=== PATIENT | male | born 1955 | race Caucasian/White ===

== ENCOUNTER 2020-02-25 11:42 | Inpatient (IN) | payer BC ==
[~2020-02-25] VITALS: Ht 177.8 cm; Wt 102.1 kg
[2020-02-25] VITALS (8 sets, daily range): BP systolic 117–163; BP diastolic 69–96
[2020-02-25 12:56] LABS: ABSOLUTE NEUTROPHILS 7.1 thou/uL (1.4-8.2); BASOPHILS 0.6 % (0.0-2.0); HEMATOCRIT 45.3 % (42.0-52.0); HEMOGLOBIN 14.8 gm/dL (14.0-18.0); LYMPHOCYTES 12.8 % (24.0-44.0); MCH 26.4 pg (26.0-34.0); MCHC 32.7 g/dL (28.0-37.0); MCV 80.6 fL (80.0-100.0); MONOCYTES 5.2 % (1.0-8.0); PLATELET COUNT 233 thou/uL (150-400); POLYS 80.4 % (36.0-66.0); RBC 5.62 mil/uL (4.50-6.00); WBC 8.8 thou/uL (4.0-11.0)
[2020-02-25 13:05] LABS: CALCIUM 10.1 mg/dL (8.5-10.1); CREATININE 1.2 mg/dL (0.7-1.3); POTASSIUM 3.9 mmol/L (3.5-5.1)
[2020-02-25 13:08] LABS: APTT 27.4 Seconds (24.5-32.8); PROTIME 10.5 Seconds (9.3-11.4)
[2020-02-25 13:14] LABS: TROPONIN-I 0.25 ng/mL (<0.06)
--- NOTE | 2020-02-25 14:56 | HC ---
[facility] [place] [address] CONSULTATION Name: EREN BLACKMAN Room #: 170-3 ADM IN M.R.#: [id number] Admission: 02/25/20 Attend Phys: Fabio Kim MD Discharge: Date of : 59 Report #: [id number] THIS REPORT FOR: cc: FAM - No family physician/PCP FAM - No family physician/PCP Janes Mcfarlane MD [facility] ~ DATE OF SERVICE: 02/25/2020 REASON FOR CONSULTATION: Chest pain. HISTORY OF PRESENT ILLNESS: The patient is a 64-year-old gentleman with a fairly limited past medical history. Today around 10:00 a.m., he developed bilateral armpit pain with shortness of breath and diaphoresis. He presented to the Emergency Department where an EKG at 12:25 p.m. on 02/25/[address] segment elevation. He has been treated with aspirin and heparin and has had improvement, although not resolution in his discomfort. No prior cardiac history. He denies orthopnea, paroxysmal nocturnal dyspnea, or lower extremity edema. No history of palpitations, near syncope, or syncope. ALLERGIES: HE IS ALLERGIC TO TETANUS AND BEE STINGS. MEDICATIONS: Include timolol eyedrops. PAST MEDICAL HISTORY: Medical records include tonsillectomy, no significant hospitalizations, illnesses, or surgeries. SOCIAL HISTORY: He is a ios software engineer. . Nonsmoker. FAMILY HISTORY: Notable for a brother with premature coronary artery disease and diabetes. REVIEW OF SYSTEMS: All systems negative except as that noted above. PHYSICAL EXAMINATION: GENERAL: He is a pleasant gentleman, in moderate distress. VITAL SIGNS: Blood pressure is 160/90, heart rate of 54 and regular. He is afebrile, 5 feet 10 inches tall, 225 pounds. HEENT: There is neither xanthelasma, subcutaneous xanthomata, oral mucosal or digital cyanosis or kyphoscoliosis present. CHEST: Clear to auscultation and percussion. CARDIAC: Reveals a regular rate and rhythm with distant heart tones. ABDOMEN: Soft and nontender. EXTREMITIES: Without cyanosis, clubbing, or edema. Radial pulses are 2+. NEUROLOGIC: He is alert with a nonfocal exam. [facility] [address] [place] [address] CONSULTATION Name: EREN BLACKMAN Room #: 170-3 ADM IN [facility].#: [id number] Admission: 02/25/20 Attend Phys: Fabio Kim MD Discharge: Date of : 59 Report #: [id number] LABORATORY DATA: Sodium 139, potassium 3.9, creatinine 1.2, and glucose 113. Coagulation parameters normal. White count 8.8, hemoglobin 14, hematocrit 45, and platelet count 233. Chest x-ray is negative. IMPRESSION: 1. Acute anterior myocardial infarction. 2. Acute systolic heart failure 3. Hypertension. 4. Unknown lipid status. RECOMMENDATIONS: 1. Urgent coronary angiography. 2. Antiplatelet and anticoagulant therapy. 3. The angiographic procedure was discussed in detail including its associated risks. After a thorough discussion of the procedure, its risks and alternatives, and after answering his questions, he is agreeable to proceeding. 65min cc time 1pm-2:56pm coordinating care, discussions with family <ELECTRONICALLY SIGNED> By: Janes Mcfarlane MD, [facility] 02/25/20 1456 1312 1424 Janes Mcfarlane MD, FACC /nt
--- NOTE | 2020-02-25 15:06 | CATHLAB ---
[facility] [place] [address] INVASIVE PROCEDURE REPORT Name: EREN BLACKMAN Room #: 170-3 ADM IN M.R.#: [id number] Admission: 02/25/20 Attend Phys: Fabio Kim MD Discharge: Date of : 59 Report #: [id number] THIS REPORT FOR: cc: FAM - No family physician/PCP FAM - No family physician/PCP Janes Mcfarlane MD [facility] ~ APPROVED REPORT Study performed: 02/25/2020 13:15:44 Patient Details Patient Status: In-Patient Room #: The patient is a 64 year-old male Event Personnel Janes Mcfarlane Retort Unloader, Cora Munguia RN RN, Francia Ellis Monitor, Yuki Bates RTR, UPHOLSTERY MECHANIC Scrub Procedures Performed Art Access - R femoral artery* Left Heart Cath w/or w/o Coronaries [id number] [facility] [address] Initial Mod Sed Same Phys/QHP Gr5y 633062 75312 Mod Sed Same Phys/QHP Ea 940428 WALDO Revasc AMI Total/Sub Single LAD C9606 AMIREVSING Hemostasis w/ Mynx Indication STEMI (>0 to less than or equal to 6 hours) Risk Factors Arterial HypertensionDysplipidemia Procedure Narrative The patient was brought emergently to the Cardiac Catheterization Laboratory and was prepped and draped in a sterile manner. The Right Groin^ was infiltrated with 1% Lidocaine subcutaneous anesthesia. A PINNACLE 6FR Sheath #[id number] sheath was inserted into the RFA^. Coronary angiography was performed using coronary diagnostic catheters. The right coronary system was accessed and visualized with a JR 4 catheter. The left coronary system was accessed and visualized with a JL 4 catheter. The left ventricle was accessed and visualized with a Pigtail catheter. Left ventricular/Aortic Valve gradient assessed via catheter pullback. Left ventriculogram was performed in HEDRICK projection. Closure device was deployed with a 6 Fr Mynx. The patient tolerated the procedure well and there were no complications associated with the procedure. [facility] [address] [place] [address] INVASIVE PROCEDURE REPORT Name: HIRALEREN Elissa Room #: 170-3 [facility] IN [facility].#: [id number] Admission: 02/25/20 Attend Phys: Fabio Kim MD Discharge: Date of : 59 Report #: [id number] Intraoperative Conscious Sedation Sedation start time: 13:25 Case end Time: 14:30 Fentanyl 100 mcg Versed 1 mg Fluoro Time: 7.54 minutes Dose: DAP 9105.00 cGycm2 1196 mGy Contrast Type and Amount: Visipaque 225 ml Coronary Angiography The patient's coronary anatomy is co- dominant. Diagnostic Cath Left Main Normal left main LAD Occluded proximal LAD just after a large first diagonal branch Diagonal 1 Moderate 30-40% proximal diagonal branch plaquing Circumflex Large codominant circumflex. Distal 20-30% circumflex plaquing before the posterior descending OM1 Mild plaquing in a small first marginal branch L PDA Normal posterior descending branch Right Coronary Codominant right coronary with minimal mid vessel plaquing R PDA Mild 20-30% proximal PDA plaquing RPLV Mild plaquing at the origin of the posterior lateral branch Left Ventriculography The left ventricle is normal in size with abnormal contractility. The left ventricular ejection fraction is estimated to be 40%. Left ventricular wall motion abnormalities are present. There is no mitral insufficiency. Anteroapical hypokinesis Hemodynamics The aortic pressure is 167/94 mmHg with a mean of 130 mmHg. The left ventricular pressure is 149/28 mmHg with a mean of mmHg. The left ventricular end diastolic pressure is 30 mmHg. PCI Technique Lesion Anticoagulation was achieved with Heparin,, Integrilin. Patient was preloaded with Effient. Percutaneous coronary intervention was performed on the proximal left anterior descending artery segment. The lesion stenosis prior to intervention was 100% with FLORA 0 flow. A LAUNCHER 6FR EBU 3.5 #[id number] Guide Catheter was used to engage the [facility] [address] [place] [address] INVASIVE PROCEDURE REPORT Name: EREN BLACKMAN Room #: 170-3 [facility] IN M.R.#: [id number] Admission: 02/25/20 Attend Phys: Fabio Kim MD Discharge: Date of : 59 Report #: [id number] ostium. A Luge Wire .014 x 182CM #[id number] Interventional Guidewire was used to cross the lesion. BALLOON DILATION A Balloon catheter Euphora RX 2.5 x 15 #[id number] was inserted and inflated up to 8.00atm for 28seconds. Repeat angiography revealed the following post-dilatation results: Moderate residual stenosis, FLORA-3 flow restored. STENT DEPLOYMENT A drug-eluting stent RESOLUTE BERNARDA RX 3.0 X 18 #[id number] was inserted and inflated up to 14.00atm for 32seconds. POST STENT DEPLOYMENT BALLOON DILATION A Balloon catheter TREK NC RX 3.0 X 15 #[id number] was inserted and inflated up to 18.00atm for 33seconds. Final angiography reveals 0 % stenosis with FLORA 3 flow. Conclusion 1. Moderate left ventricular dysfunction with anteroapical hypokinesis. EF 40% 2. Normal left main 3. Proximal LAD occlusion successfully opened with a 3.0 x 18 mm Resolute medicated stent. FLORA III flow restored 4. Codominant circumflex with mild plaquing 5. Right coronary with mild mid vessel plaquing Medications Administered DIANA Inhibitor (any) Aspirin (any) Beta Saundra (any) Statin (any) Prasugrel <ELECTRONICALLY SIGNED> By: Janes Mcfarlane MD, [facility] 02/25/20 1505 1505 1505 Janes Mcfarlane MD, FAC /INF
--- NOTE | 2020-02-25 15:22 | EKG ---
[place] [address] [facility] [place] [address] ELECTROCARDIOGRAM REPORT Name: EREN BLACKMAN Room #: 200-I ADM IN .R.#: [id number] Admission: 02/25/20 Attend Phys: Fabio Kim MD Discharge: Date of : 59 Report #: [id number] [facility] ED Test Date: 2020-02-25 Test Time: 12:25:04 Pat Name: EREN BLACKMAN Department: Room: 200 Gender: M Sales Utility Representative: shawn : 1955 Requested By: Juan F Armenta Order Number: [id number] MD: Janes Mcfarlane Measurements Intervals [place] Rate: 51 P: 45 NE: 145 QRS: -22 QRSD: 96 T: -12 QT: 436 QTc: 402 Interpretive Statements Sinus rhythm Borderline left axis deviation Anterolateral infarct, acute (LAD) No previous ECG available for comparison Electronically Signed On 02-25-2020 15:22:02 AEROSPACE ASSEMBLER by Janes Mcfarlane [email or web address] <ELECTRONICALLY SIGNED> By: Janes Mcfarlane MD, [facility] 02/25/20 1522 1225 1225 Janes Mcfarlane MD, FACC /EPI
--- NOTE | 2020-02-25 18:22 | NUR ---
TO UNIT FROM [facility] HELPER AT 1600. VSS. NO C/O. DENIES CP, SOA. AT BEDSIDE. BEDREST UNTIL 1800. GROIN SITE NONTENDER, CDI. SR WITH BBB PER TELE. ORIENTED TO UNIT, FALL PRECAUTIONS.
[2020-02-26] VITALS: BP 120/60
[2020-02-26 04:16] LABS: HEMATOCRIT 41.1 % (42.0-52.0); HEMOGLOBIN 13.2 gm/dL (14.0-18.0); MCH 26.1 pg (26.0-34.0); MCHC 32.2 g/dL (28.0-37.0); MCV 80.9 fL (80.0-100.0); RBC 5.08 mil/uL (4.50-6.00); RDW 14.8 % (10.5-14.5)
[2020-02-26 04:54] VITALS: BP 105/62
[2020-02-26 04:59] LABS: ALBUMIN 3.2 g/dL (3.4-5.0); ANION GAP 12 mmol/L (7-16); BUN 12 mg/dL (7-18); CALCIUM 9.1 mg/dL (8.5-10.1); CHLORIDE 103 mmol/L (98-107); CHOLESTEROL 227 mg/dL (<200); CO2 24 mmol/L (21-32); CREATININE 1.2 mg/dL (0.7-1.3); GLUCOSE 137 mg/dL (74-106); HDL CHOLESTEROL 36 mg/dL (>40); LDL CHOLESTEROL 174 mg/dL (<100); POTASSIUM 3.6 mmol/L (3.5-5.1); SGOT 383 U/L (15-37); SGPT 67 U/L (30-65); SODIUM 139 mmol/L (136-145); TC:HDL 6.3 Ratio (Not establshd); TOTAL BILIRUBIN 0.7 mg/dL (0.2-1.0); TOTAL PROTEIN 6.5 g/dL (6.4-8.2); TRIGLYCERIDE 89 mg/dL (<150); VLDL 18 mg/dL (<40)
[2020-02-26 05:01] LABS: SERUM ASSESSMENT Clear
[2020-02-26 05:03] LABS: TROPONIN-I 130.83 ng/mL (<0.06)
--- NOTE | 2020-02-26 05:51 | NUR ---
ASSUME CARE 1900. PT/VITALS STABLE. DENIES ANY CHEST/GENERALIZED PAIN. UP AD SONIYA WOTH GOOD ENDURANCE TO ACTIVITY. NO SOB NOTED WITH EXERTION. RIGHT GROI SITE CDI WITH NO BRUISING/HEMATOMA/BLEEDING NOTED. FREQUENT RUNS OF VTACH NOTED THROUGH THE NIGHT BUT PT ASSYPTOMATIC. SR/SB NOTED WITH PVCS NAD HR WITHIN 60s-70s. PLAN IS POSSIBLE DISCHARGE TOMORROW. WILL CONTINUE TO MONITOR AND FOLLOW WITH POC
[2020-02-26 07:25] VITALS: BP 101/66
--- NOTE | 2020-02-26 10:46 | EKG ---
[place] [address] [facility] [place] [address] ELECTROCARDIOGRAM REPORT Name: EREN BLACKMAN Room #: 200-I ADM IN M.R.#: [id number] Admission: 02/25/20 Attend Phys: Fabio Kim MD Discharge: Date of : 59 Report #: [id number] [facility] Test Date: 2020-02-26 Test Time: 08:19:36 Pat Name: ERNE HIRAL Department: Room: 200 I Gender: M Fried Cake Maker: janna : 1955 Requested By: Janes Mcfarlane Order Number: [id number] MD: Logan Payne Measurements Intervals [place] Rate: 54 P: 53 MA: 144 QRS: -23 QRSD: 106 T: 80 QT: 432 QTc: 410 Interpretive Statements Sinus rhythm Multiform ventricular premature complexes Borderline left axis deviation Probable anteroseptal infarct, recent Compared to ECG 02/25/2020 12:25:04 Electronically Signed On 02-26-2020 10:46:03 CREDIT CONTROLLER by Logan Payne [email or web address] <ELECTRONICALLY SIGNED> By: Logan Payne MD 02/26/20 1046 8 8 Logan Payne MD /AKBAR
[2020-02-26 12:40] VITALS: BP 103/59
[2020-02-26 15:35] VITALS: BP 97/57
--- NOTE | 2020-02-26 17:24 | NUR ---
ASSESSMENT CHARTED - MEDS PER APR - NO CO'S OF PAIN OR NASUEA. HEMALATHA DIET AND FLUIDS. AMBULATED IN THE HALLS WITH NO SOB OR CO'S OF CHEST PAIN. PT GIVEN 40 MEQ K+ ORDERED - FLU SHOT GIVEN. PT SHOWERED THIS AFTERNOON. SIG OTHER AT BEDSIDE FOR MOST OF THE DAY. NO CO'S AT THE PRESENT TIME.
[2020-02-26 19:00] VITALS: BP 97/54
[2020-02-27 02:05] LABS: GLYCOHEMOGLOBIN (HGB A1C) 5.3 % (4.8-5.6)
--- NOTE | 2020-02-27 03:50 | NUR ---
ASSUME CARE 1900. PT/VITALS STABLE. DENIES ANY CHEST PAIN. GOOD ENDURANCE WITH ACTIVITY. NO DISTRESS NOTED/ADEQUATE REST. SR/SB ON MONITOR. WITH NO RUNS OF VTACH NOTED THIS SHIFT. ASSESSMENT CHARTED. PROGRESSING WELL WITH POC. PLAN IS POSSIBLE DISCHARGE TODAY. WILL CONTINUE TO MONITOR AND FOLLOW WITH POC
[2020-02-27 04:45] VITALS: BP 100/53
[2020-02-27 07:15] VITALS: BP 99/59
[2020-02-27] MEDS ORDERED: TOPROL XL25 MG PO (10:28)
[2020-02-27] MEDS ORDERED: ACETAMINOPHEN325 M1 PO (10:28)
[2020-02-27] MEDS ORDERED: LISINOPRIL2.5 MG PO (10:28)
[2020-02-27] MEDS ORDERED: LIPITOR40 MG PO (10:28)
[2020-02-27] MEDS ORDERED: ASPIR 8181 MG PO (10:28)
[2020-02-27] MEDS ORDERED: EFFIENT10 MG PO (10:28)
--- NOTE | 2020-02-27 10:39 | EKG ---
[place] [address] [facility] [place] [address] ELECTROCARDIOGRAM REPORT Name: EREN BLACKMAN Room #: 200-I ADM IN M.R.#: [id number] Admission: 02/25/20 Attend Phys: Fabio Kim MD Discharge: Date of : 59 Report #: [id number] [facility] Test Date: 2020-02-27 Test Time: 10:23:19 Pat Name: EREN BLACKMAN Department: Room: 200 I Gender: M Treasurer: : 1955 Requested By: Logan Payne Order Number: [id number] MD: Logan Payne Measurements Intervals [place] Rate: 60 P: 49 DE: 138 QRS: -29 QRSD: 99 T: 114 QT: 476 QTc: 476 Interpretive Statements Sinus rhythm Borderline left axis deviation Anterior infarct, resolving Lateral leads are also involved Compared to ECG 02/26/2020 08:19:36 Electronically Signed On 02-27-2020 10:39:03 HYDRAULIC BLOCKER by Logan Payne [email or web address] <ELECTRONICALLY SIGNED> By: Logan Payne MD 02/27/20 1039 1023 1023 Logan Payne MD /AKBAR
[2020-02-27 12:23] VITALS: BP 99/59
--- NOTE | 2020-02-27 13:32 | NUR ---
DISCHARGING TO HOME. SALINE LOCKS DISCONTINUED. TELE PACK SECURED ON UNIT.
== END 2020-02-27 14:00 | disposition home or self-care (01) | DRG 246 ==
LOC: ER 11:42 → EROBS 14:46 → 2N 15:10
PROVIDERS: Emergency Medicine; Internal Medicine; ADMIT Internal Medicine; ATTEND Internal Medicine
PROC: B215YZZ Fluoroscopy of Left Heart using Other Contrast (ICD-10-PCS; principal; 2020-02-25)
PROC: 4A023N7 Measurement of Cardiac Sampling and Pressure, Left Heart, Percutaneous Approach (ICD-10-PCS; principal; 2020-02-25)
PROC: B211YZZ Fluoroscopy of Multiple Coronary Arteries using Other Contrast (ICD-10-PCS; principal; 2020-02-25)
PROC: 027034Z Dilation of Coronary Artery, One Artery with Drug-eluting Intraluminal Device, Percutaneous Approach (ICD-10-PCS; principal; 2020-02-25)
DX: I21.09 ST elevation (STEMI) myocardial infarction involving other coronary artery of anterior wall (principal); I50.21 Acute systolic (congestive) heart failure; I11.0 Hypertensive heart disease with heart failure; E78.5 Hyperlipidemia, unspecified; S30.1XXA Contusion of abdominal wall, initial encounter; X58.XXXA Exposure to other specified factors, initial encounter; F41.0 Panic disorder [episodic paroxysmal anxiety]; Z79.899 Other long term (current) drug therapy; Z88.7 Allergy status to serum and vaccine; Z91.030 Bee allergy status; Z82.49 Family history of ischemic heart disease and other diseases of the circulatory system; Z83.3 Family history of diabetes mellitus; Y93.89 Activity, other specified; Y92.89 Other specified places as the place of occurrence of the external cause; Y99.8 Other external cause status; Z23 Encounter for immunization
CPT/HCPCS: 10081

== ENCOUNTER → 2020-04-05 | Outpatient (CLI) | payer BC ==
[~2020-04-05] MED LIST: ACETAMINOPHEN325 M1 PO; ASPIR 8181 MG PO; EFFIENT10 MG PO; LIPITOR40 MG PO; LISINOPRIL2.5 MG PO; TOPROL XL25 MG PO
== END ==
LOC: SJCVCIMAG 08:37
PROVIDERS: ATTEND Internal Medicine
DX: I08.3 Combined rheumatic disorders of mitral, aortic and tricuspid valves (principal); R00.1 Bradycardia, unspecified; I10 Essential (primary) hypertension; I25.2 Old myocardial infarction; I25.10 Atherosclerotic heart disease of native coronary artery without angina pectoris; Z98.61 Coronary angioplasty status

== ENCOUNTER → 2020-05-25 | Outpatient (CLI) | payer BC | LOC: SJCVCIMAG 07:50 | PROVIDERS: ATTEND Internal Medicine | DX: I65.23 Occlusion and stenosis of bilateral carotid arteries (principal); I34.0 Nonrheumatic mitral (valve) insufficiency; I25.10 Atherosclerotic heart disease of native coronary artery without angina pectoris; I42.9 Cardiomyopathy, unspecified; R09.89 Other specified symptoms and signs involving the circulatory and respiratory systems; E78.5 Hyperlipidemia, unspecified ==